=== PATIENT | male | born 1975 | race Caucasian/White ===

== ENCOUNTER 2017-01-30 13:23 | Emergency (ER) | payer MEDICAID ==
[~2017-01-30] VITALS: Ht 188 cm; Wt 108.0 kg
[2017-01-30 13:31] VITALS: BP 139/83
== END 2017-01-30 13:41 | disposition home or self-care (01) ==
LOC: ER 13:24
DX: H60.8X2 Other otitis externa, left ear (principal)
CPT/HCPCS: 99283; A4606; Z7610